=== PATIENT | male | born 1945 | race Caucasian/White ===

== ENCOUNTER 2017-12-25 13:20 | Outpatient (CLI) | payer MEDICARE ==
--- NOTE | 2017-12-25 14:25 | CT ---
NONCONTRAST ENHANCED LUNG SCREENING CT: Date: 12-25-17 Comparison: 10-31-16, [facility]. Technique: Low dose CT axial images were obtained with coronal and sagittal reconstructions. FINDINGS: Images demonstrate mild ground glass opacities seen in the inferior aspect of the right upper lobe se en on image 30. There is some minimal opacities also seen in the right lower lobe posteromedially. Th dee areas of opacities have significantly decreased since the previous comparison CT. Again a granuloma is seen in the right middle lobe. Extensive coronary and aortic calcifications seen. There is a cardiac pacing device. No newly developed masses or lesions are seen. IMPRESSION: 1. No newly developed masses or lesions. 2. Lung RADS category 2 - benign and stable findings. Continue with annual screening low dose screeni ng CT in 12 months. POS: KIN
== END 2017-12-25 13:21 | disposition home or self-care (01) ==
LOC: CT 13:20
PROVIDERS: ATTEND Family Medicine
DX: F17.210 Nicotine dependence, cigarettes, uncomplicated (principal)
CPT/HCPCS: G0297

== ENCOUNTER 2019-08-20 11:22 | Outpatient (CLI) | payer MEDICARE, BC ==
--- NOTE | 2019-08-20 13:09 | RAD ---
FOUR VIEWS LUMBAR SPINE: HISTORY: Lumbar stenosis with claudication. FINDINGS: On the AP projection, there are 5 lumbar-type vertebrae. There is rightward curvature of the lumbar spine centered at the L2 and L3 level. There appears to be a loss of vertebral body height along the left aspect of L3. Prominent osteophyte formation throughout the lumbar spine, greatest at the L2-3 level. Visualized sacrum and bony pelvis are unremarkable. There are degenerative changes of the symphysis pubis. The lateral projection demonstrates aneurysmal dilatation of the atherosclerotic aorta, measuring 4.7 cm in the anterior posterior dimension. Vacuum disk phenomenon at L2-L3. There are hypertrophic changes of the posterior elements at L3-L4, L4-L5, and L5-S1. In the neutral position, no significant spondylolisthesis. No abnormal motion upo n extension or flexion. IMPRESSION: 1. Dextroscoliosis of the lumbar spine with multilevel degenerative change, osteophyte formation, va cuum disk phenomenon, and hypertrophic changes of the facets. 2. Aneurysmal dilatation of the infrarenal abdominal aorta, incompletely evaluated. Dedicated CT an giogram of the aorta is recommended. Results of the study discussed with Beverly Gruber 08/20/2019 11:56 a.m. CODE CR POS: CET
--- NOTE | 2019-08-20 13:19 | MRI ---
MR the lumbar spine with and without contrast: 08/20/2019 History: Increasing back pain radiating down bilateral lower extremities, history of lumbar spine silas kvng 10 years ago COMPARISON: None. TECHNIQUE: Multiplanar multisequence MR images were obtained of lumbar spine without IV contrast FINDINGS: On the basis of 5 lumbar type vertebral bodies, conus medullaris terminates at theT12 level. Sagittal STIR imaging demonstrates no focal area of osseous marrow edema. T12-L1:There is disc space narrowing with disc desiccation. Mild bilateral facet hypertrophy. No sign ificant central canal or neural foraminal stenosis. L1-2:There is disc space narrowing with disc desiccation and disc bulge. Bilateral facet hypertrophy. Degenerative endplate change present. Mild neural foraminal stenosis on the left. No significant central canal stenosis or right neural foraminal stenosis. L2-3:There is disc space narrowing with disc desiccation and a disc osteophyte complex. Prominent kayla ateral facet hypertrophy present. Mild right and moderate/severe left neural foraminal stenosis. Mild/moderate central canal stenosis. L3-4:There is disc space narrowing and disc desiccation with disc bulge and prominent bilateral facet hypertrophy/hypertrophy of the ligamentum flavum. This results in severe central canal stenosis and severe bilateral neural foraminal stenosis. L4-5:Bilateral facet hypertrophy. There is disc space narrowing with disc desiccation and a small dis c osteophyte complex. No significant central canal stenosis or left neural foraminal stenosis. Severe right neural foraminal stenosis. L5-S1:There is bilateral facet hypertrophy. There is moderate right and mild left neural foraminal st enosis. No significant central canal stenosis. Image retroperitoneal structures demonstrateno acute findings. Postcontrast imaging demonstrates no abnormal enhancement involving the contents of the thecal sac, t he intervertebral discs, or the imaged osseous structures. IMPRESSION: Multilevel degenerative change within the lumbar spine including multiple levels of severe central ca nal and neural foraminal stenosis.
== END 2019-08-20 11:23 | disposition home or self-care (01) ==
LOC: MRI 11:22
PROVIDERS: ATTEND Neurological Surgery
DX: M48.062 Spinal stenosis, lumbar region with neurogenic claudication (principal); M41.9 Scoliosis, unspecified; M47.816 Spondylosis without myelopathy or radiculopathy, lumbar region; M25.78 Osteophyte, vertebrae; I71.4 Abdominal aortic aneurysm, without rupture; M48.07 Spinal stenosis, lumbosacral region
CPT/HCPCS: 72110; 72158; 82565

== ENCOUNTER 2019-08-21 11:33 | Outpatient (CLI) | payer MEDICARE, BC ==
--- NOTE | 2019-08-21 12:38 | CT ---
CTA Angio Abd Pelvis W WO Con HISTORY: Abdominal aortic aneurysm. COMPARISON: None. FINDINGS: The lung bases show COPD type changes. The liver, spleen, pancreas and gallbladder regions appear unremarkable on this angiographic phase ex amination. Right and left adrenal glands and right and left kidneys are normal in size. There is no significant periaortic or mesenteric adenopathy. There is an infrarenal abdominal aortic aneurysm present. The aneurysm measures 3.7 cm in AP dimensio n. This shows an area of more chronic appearing intimal dissection in a focal area of the aneurysm with a linear band of dense calcification extending through the aneurysm on axial image 70. There is marked atherosclerotic change of the origin of the right renal artery and mild changes invol ving the origin of the left renal artery. The aorta measures 2.4 cm in size at the aortic bifurcation. There is mild aneurysmal dilatation of the common iliac arteries both measuring in the 1 5 mm range. No pelvic lymphadenopathy or mass. Marked arthritic changes of the spine are noted and scoliosis. IMPRESSION: 3.7 cm infrarenal abdominal aortic aneurysm as described above with an area of chronic in timal dissection noted.
== END 2019-08-21 11:34 | disposition home or self-care (01) ==
LOC: CT 11:33
PROVIDERS: ATTEND Neurological Surgery
DX: I71.4 Abdominal aortic aneurysm, without rupture (principal)
CPT/HCPCS: 74174

== ENCOUNTER 2020-01-06 06:05 | Outpatient (CLI) | payer MEDICARE, BC, OTHER ==
[2020-01-06 14:29] LABS: Hemoglobin 16.7 g/dL (14.0-18.0); Mean Corpuscular HGB CONC 33.1 g/dL (32.0-36.0); Mean Corpuscular Hemoglobin 34.3 pg (27.0-31.0); Mean Platelet Volume 9.1 fL (7.4-10.4); Platelet Count 146 thou/uL (130-400); RBC Distribution Width 12.4 % (11.5-14.5); Red Blood Cell (RBC) Count 4.88 mill/uL (4.70-6.10); White Blood Cell (WBC) Count 6.3 thou/uL (4.8-10.8)
[2020-01-06 14:37] LABS: Anion Gap 13 mmol/L (10-20); BUN (Urea Nitrogen) 15 mg/dL (8.4-25.7); Calc. Creatinine Clearance 0 mL/min (70-130); Calcium 9.1 mg/dL (7.8-10.44); Carbon Dioxide 24 mmol/L (23-31); Chloride 106 mmol/L (98-107); Estimated GFR-MDRD 76; Glucose 88 mg/dL (83-110); Potassium 4.3 mmol/L (3.5-5.1); Sodium 139 mmol/L (136-145)
[2020-01-07 13:52] LABS: SARS-CoV-2 MS2 Positive; SARS-CoV-2 N Gene Negative; SARS-CoV-2 S Gene Negative; SARS-CoV-2 by NAA Not Detected (NotDetected); SARS-CoV-2 orf1ab Negative
== END 2020-01-06 06:06 | disposition home or self-care (01) ==
LOC: LABBT 06:05
PROVIDERS: ATTEND Neurological Surgery
DX: Z01.818 Encounter for other preprocedural examination (principal); Z11.59 Encounter for screening for other viral diseases; M48.062 Spinal stenosis, lumbar region with neurogenic claudication
CPT/HCPCS: 80048; 85027; U0003; 87635; 93005; 93010

== ENCOUNTER 2020-01-11 06:55 | Day surgery (SDC) | payer MEDICARE, BC ==
[2020-01-04 15:20] VITALS: BMI 23.7
[2020-01-11] MEDS ORDERED: Fentanyl 100 MCG/2 ML VIAL ONE ×3 (07:30→10:17)
[2020-01-11] MEDS ORDERED: Dexamethasone 20 MG/5 ML VIAL ONE (09:39)
[2020-01-11] MEDS ORDERED: Succinylcholine Chloride 20 MG/ML 10 ml SYRINGE FS ONE (09:39)
[2020-01-11] MEDS ORDERED: PROPOFOL 200 MG/20 ML VIAL ONE (09:39)
[2020-01-11] MEDS ORDERED: Lidocaine 1% PF 5 ML VIAL ONE (09:39)
[2020-01-11] MEDS ORDERED: Ketorolac Tromethamine 30 MG/ML VIAL ONE (09:39)
[2020-01-11] MEDS ORDERED: Ondansetron PF 4 MG/2 ML Vial ONE (09:39)
[2020-01-11] MEDS ORDERED: HYDROmorphone 2 MG/ML VIAL ONE (10:30)
--- NOTE | 2020-01-11 10:47 | OP ---
DATE OF PROCEDURE: 01/11/2020 TIPPLE ENGINEER: Beverly Nolasco PA-C PROCEDURE PERFORMED: L3-L4 laminectomy. DESCRIPTION OF PROCEDURE: The patient was brought to the operating room and intubated. He was rolled in a prone position on gel-filled chest rolls. An incision was made exposing L3 and L4 and level was confirmed by x-ray. We removed the remnant of L4 and inferior aspect of L3, completely decompressing L3-L4. A complete decompression was secured. The wound was then extensively irrigated and MAC hemostasis was secured. Vancomycin powder was applied and the wound was closed in anatomic layers. Job ID: [id number]
[2020-01-11] MEDS ORDERED: Midazolam HCl 2 mg/2 ml Vial ONE (10:54)
[2020-01-11] MEDS ORDERED: Tamsulosin HCl 0.4 MG CAP ONE (11:20)
[2020-01-11] MEDS ORDERED: HYDROcodone/Acetaminophen 5/325 mg Tablet ONE (13:21)
== END 2020-01-11 14:00 | disposition home or self-care (01) ==
LOC: SDC 06:55
PROVIDERS: ATTEND Neurological Surgery
PROC: 01NB0ZZ Release Lumbar Nerve, Open Approach (ICD-10-PCS; principal; 2020-01-11)
DX: M48.062 Spinal stenosis, lumbar region with neurogenic claudication (principal); N40.0 Benign prostatic hyperplasia without lower urinary tract symptoms; I10 Essential (primary) hypertension; E78.5 Hyperlipidemia, unspecified; Z79.899 Other long term (current) drug therapy; Z95.0 Presence of cardiac pacemaker
CPT/HCPCS: 76000; J0690; J1100; J1170; J1885; J2250; J2405; J2704; J3010; J3370

== ENCOUNTER 2021-11-02 12:40 | Outpatient (CLI) | payer MEDICARE, BC | END 2021-11-02 12:41 | disposition home or self-care (01) | LOC: BICCT 12:40 | PROVIDERS: ATTEND Thoracic Surgery (Cardiothoracic Vascular Surgery) | DX: I71.4 Abdominal aortic aneurysm, without rupture (principal); I70.8 Atherosclerosis of other arteries; K55.1 Chronic vascular disorders of intestine; E27.8 Other specified disorders of adrenal gland; N28.1 Cyst of kidney, acquired; K57.30 Diverticulosis of large intestine without perforation or abscess without bleeding; K40.90 Unilateral inguinal hernia, without obstruction or gangrene, not specified as recurrent | CPT/HCPCS: 74174; 82565 ==